=== PATIENT | male | born 1990 | race Two or more races ===

== ENCOUNTER 2024-09-18 14:19 | Emergency (ER) | payer BC ==
[~2024-09-18] VITALS: Ht 182.9 cm; Wt 108.9 kg
[2024-09-18] MEDS ORDERED: BIKTARVY 50-201 EACH PO (14:41)
[2024-09-18 17:31] LABS: HEMATOCRIT 45.4 % (39.0-48.0); MEAN CELL VOLUME 83.7 fL (80.0-100.00); MEAN CORPUSCULAR HEMOGLOBIN 29.6 pg (27.00-32.0); MEAN CORPUSCULAR HGB CONC 35.3 g/dl (32.0-36.0); PLATELET COUNT 218 K/uL (150-450); RED BLOOD COUNT 5.42 M/uL (4.00-6.00); RED CELL DISTRIBUTION WIDTH 13.3 % (11.5-14.5)
[2024-09-18] MEDS ORDERED: ZITHROMAX500 MG PO (18:12)
== END 2024-09-18 18:24 | disposition home or self-care (01) ==
LOC: ER 14:21
PROVIDERS: Emergency Medicine
DX: R53.81 Other malaise (principal); J06.9 Acute upper respiratory infection, unspecified; J02.9 Acute pharyngitis, unspecified; Z20.822 Contact with and (suspected) exposure to COVID-19; Z91.048 Other nonmedicinal substance allergy status